=== PATIENT | female | born 1945 | race Two or more races ===

== ENCOUNTER 2018-03-06 14:41 | Emergency (ER) | payer OTHER ==
[~2018-03-06] VITALS: Ht 152.4 cm; Wt 65.8 kg
[~2018-03-06 14:41] MED LIST: ACID REDUCER 1150 MG; AMPICILLIN TRI500 MG; CIPRO500 MG PO; CRESTOR5 MG; DIOVAN320 MG; FENOFIBRATE160 MG; GLUMETZA1000 MG; LEVSIN/SL0.125 MG SL; METOPROLOL SUC100 MG; NORVASC5 MG; OMEPRAZOLE20 MG; PEPCID40 MG PO; TRADJENTA5 MG; ZOFRAN4 MG PO
[2018-03-06] MEDS ORDERED: HUMALOG100 UNIT/1 (15:11)
[2018-03-06] MEDS ORDERED: NORVASC5 MG (15:12)
[2018-03-06] MEDS ORDERED: TOPROL XL100 M1 (15:12)
[2018-03-06] MEDS ORDERED: LANTUS SOL100 UNIT/1 (15:12)
[2018-03-06] MEDS ORDERED: FENOFIBRATE160 MG (15:13)
[2018-03-06] MEDS ORDERED: IRBESARTAN-HCT1 EAC1 (15:13)
[2018-03-06] MEDS ORDERED: CIPRO500 MG PO ×2 (22:13→22:14)
[2018-03-06] MEDS ORDERED: ULTRACET PO ×2 (22:13→22:14)
[2018-03-06] MEDS ORDERED: FLAGYL500MG PO ×2 (22:14)
[2018-03-06] MEDS ORDERED: INTESTINEX680 M1 PO ×2 (22:14)
== END 2018-03-06 22:15 | disposition home or self-care (01) ==
LOC: ER
DX: N39.0 Urinary tract infection, site not specified (principal); B96.89 Other specified bacterial agents as the cause of diseases classified elsewhere

== ENCOUNTER 2018-04-11 11:58 | Emergency (ER) | payer OTHER ==
[~2018-04-11] VITALS: Ht 152.4 cm; Wt 65.8 kg
[~2018-04-11 11:58] MED LIST changes: +FLAGYL500MG PO; +HUMALOG100 UNIT/1; +INTESTINEX680 M1 PO; +IRBESARTAN-HCT1 EAC1; +LANTUS SOL100 UNIT/1; +TOPROL XL100 M1; +ULTRACET PO
[2018-04-11] MEDS ORDERED: FORTAMET1000 MG (12:51)
[2018-04-11] MEDS ORDERED: HUMALOG100 UNIT/1 (12:51)
[2018-04-11] MEDS ORDERED: ZEGERID 40 MG1 EACH (12:52)
[2018-04-11] MEDS ORDERED: IRBESARTAN-HCT1 EACH (12:53)
[2018-04-11] MEDS ORDERED: TRIGLIDE160 MG (12:53)
[2018-04-11] MEDS ORDERED: NORVASC2.5 M1 (12:54)
[2018-04-11] MEDS ORDERED: TOPROL XL100 M1 (12:54)
== END 2018-04-11 19:49 | disposition home or self-care (01) ==
LOC: ER 11:58
DX: N39.0 Urinary tract infection, site not specified (principal)

== ENCOUNTER 2018-04-12 18:25 | Inpatient (IN) | payer OTHER ==
[~2018-04-12] VITALS: Ht 152.4 cm; Wt 65.8 kg
[~2018-04-12 18:25] MED LIST changes: +FORTAMET1000 MG; +IRBESARTAN-HCT1 EACH; +NORVASC2.5 M1; +TRIGLIDE160 MG; +ZEGERID 40 MG1 EACH
--- NOTE | 2018-04-12 18:37 | NUR ---
PTE ALERTA Y ORIENTADA X3 ESFERAS QUIEN LLEGA CON REFERIDO POR VISTULA VAGINAL,PTE REFIERE DOLOR PELVICO Y SECRESIONES EN AREA VAGINAL,PTE EVALUADA FERNANDO EN APCH.
--- NOTE | 2018-04-12 19:36 | NUR ---
PT ALERTA Y ORIENTADA X3 ESFERAS SE LE ORIENTA SOBRE TX Y REFIERE ENTEDER. SE MAMADOU MUESTRAS DE BRANDIN Y VENOPUNCION CON TECNICAS ASEPTICAS. SE ADMINSITRAN MEDICAMENTOS E IVFLUIDS ORDENADOS. PT TOLERA TX.
[2018-04-21] MEDS ORDERED: FLAGYL500MG PO (15:42)
[2018-04-21] MEDS ORDERED: CEFDINIR300 MG PO (15:42)
[2018-04-22] MEDS ORDERED: FLAGYL500MG PO (09:25)
== END 2018-04-21 16:30 | disposition home or self-care (01) | DRG 760 ==
LOC: ER 18:25 → MEDJ 22:31 → SEC-K 22:31 → MEDJ 04-13 01:20
PROVIDERS: ADMIT Internal Medicine
PROC: 0T9B70Z Drainage of Bladder with Drainage Device, Via Natural or Artificial Opening (ICD-10-PCS; 2018-04-12)
PROC: BW21Y0Z Computerized Tomography (CT Scan) of Abdomen and Pelvis using Other Contrast, Unenhanced and Enhanced (ICD-10-PCS; 2018-04-13)
PROC: BU46ZZZ Ultrasonography of Uterus (ICD-10-PCS; 2018-04-13)
PROC: 0DJD8ZZ Inspection of Lower Intestinal Tract, Via Natural or Artificial Opening Endoscopic (ICD-10-PCS; principal; 2018-04-14)
PROC: BU08YZZ Plain Radiography of Uterus and Fallopian Tubes using Other Contrast (ICD-10-PCS; 2018-04-14)
PROC: 0DJD8ZZ Inspection of Lower Intestinal Tract, Via Natural or Artificial Opening Endoscopic (ICD-10-PCS; 2018-04-19)
DX: N82.8 Other female genital tract fistulae (principal); K57.20 Diverticulitis of large intestine with perforation and abscess without bleeding; N39.0 Urinary tract infection, site not specified; R65.10 Systemic inflammatory response syndrome (SIRS) of non-infectious origin without acute organ dysfunction; E44.1 Mild protein-calorie malnutrition; N17.8 Other acute kidney failure; N82.3 Fistula of vagina to large intestine; K63.89 Other specified diseases of intestine; E78.2 Mixed hyperlipidemia; D72.828 Other elevated white blood cell count; E11.9 Type 2 diabetes mellitus without complications; Z79.4 Long term (current) use of insulin; K80.70 Calculus of gallbladder and bile duct without cholecystitis without obstruction; I10 Essential (primary) hypertension; R35.8 Other polyuria

== ENCOUNTER 2018-05-06 10:56 | Emergency (ER) | payer OTHER ==
[~2018-05-06] VITALS: Ht 149.9 cm; Wt 60.8 kg
[~2018-05-06 10:56] MED LIST changes: +CEFDINIR300 MG PO
[2018-05-06] MEDS ORDERED: LANTUS SOL100 UNIT/1 (11:19)
[2018-05-06] MEDS ORDERED: AMOX-CLAV 875-1 EACH (11:19)
== END 2018-05-06 18:12 | disposition home or self-care (01) ==
LOC: ER 10:56
DX: I70.292 Other atherosclerosis of native arteries of extremities, left leg (principal); M79.605 Pain in left leg

== ENCOUNTER 2018-05-24 09:45 | Inpatient (IN) | payer OTHER ==
[~2018-05-24] VITALS: Ht 152.4 cm; Wt 61.2 kg
[~2018-05-24 09:45] MED LIST changes: +AMOX-CLAV 875-1 EACH
[2018-05-24] MEDS ORDERED: AMOX-CLAV 875-1 EACH PO (13:32)
[2018-05-24] MEDS ORDERED: PROBIOT PO (13:33)
[2018-05-24] MEDS ORDERED: ADULT ASPIRIN81 MG PO (13:33)
== END 2018-05-29 16:14 | disposition home or self-care (01) | DRG 330 ==
LOC: EDSTATUS 09:45 → ADM 09:45 → SURH 05-26 06:35 → O/R 05-26 06:35 → SURH 05-26 07:00 → SURG 05-26 18:29 → SURH 05-26 19:27
PROVIDERS: Urology; ADMIT Colon & Rectal Surgery
PROC: 0DJD8ZZ Inspection of Lower Intestinal Tract, Via Natural or Artificial Opening Endoscopic (ICD-10-PCS; 2018-05-26)
PROC: 0DTN4ZZ Resection of Sigmoid Colon, Percutaneous Endoscopic Approach (ICD-10-PCS; principal; 2018-05-26 07:00)
PROC: 0T788DZ Dilation of Bilateral Ureters with Intraluminal Device, Via Natural or Artificial Opening Endoscopic (ICD-10-PCS; 2018-05-26 07:00)
DX: K57.20 Diverticulitis of large intestine with perforation and abscess without bleeding (principal); N82.3 Fistula of vagina to large intestine; N39.0 Urinary tract infection, site not specified; N73.6 Female pelvic peritoneal adhesions (postinfective); N76.0 Acute vaginitis; E11.9 Type 2 diabetes mellitus without complications; I10 Essential (primary) hypertension; E78.49 Other hyperlipidemia; M79.605 Pain in left leg

== ENCOUNTER 2018-06-19 09:20 | Inpatient (IN) | payer OTHER ==
[~2018-06-19] VITALS: Ht 152.4 cm; Wt 62.1 kg
[~2018-06-19 09:20] MED LIST changes: +ADULT ASPIRIN81 MG PO; +AMOX-CLAV 875-1 EACH PO; +PROBIOT PO
--- NOTE | 2018-06-19 09:39 | NUR ---
PACIENTE ALERTA Y ORIENTADA POR JAS ESFERS QUIEN REFIERE DOLOR DE GARGANTA Y FIEBRE.
--- NOTE | 2018-06-19 13:47 | NUR ---
PACIENTE ALERTA Y ORIENTADA EN OLIVER JAS ESFERAS, ES ORIENTADA SOBRE ORDENES MEDICAS, REFIERE ENTENDER. SE COLECTAN MUESTRAS DE LABORATORIO, SE CANALIZA VENA Y SE ADMINISTRA RACHEL ORDENADO. PENDIENTE RADIOGRAFIA.
[2018-06-22] MEDS ORDERED: PROBIOTIC-10 11 EACH PO (14:49)
== END 2018-07-23 17:27 | disposition home or self-care (01) | DRG 689 ==
LOC: ER 09:20 → MEDI 18:28 → MEDJ 18:28
PROVIDERS: ADMIT Colon & Rectal Surgery
PROC: BW24ZZZ Computerized Tomography (CT Scan) of Chest and Abdomen (ICD-10-PCS; 2018-06-23)
PROC: BW21ZZZ Computerized Tomography (CT Scan) of Abdomen and Pelvis (ICD-10-PCS; 2018-06-23)
PROC: 0W9G3ZZ Drainage of Peritoneal Cavity, Percutaneous Approach (ICD-10-PCS; principal; 2018-06-26)
PROC: 3E0F7GC Introduction of Other Therapeutic Substance into Respiratory Tract, Via Natural or Artificial Opening (ICD-10-PCS; 2018-06-26)
PROC: 30233N1 Transfusion of Nonautologous Red Blood Cells into Peripheral Vein, Percutaneous Approach (ICD-10-PCS; 2018-07-03)
PROC: 02HV33Z Insertion of Infusion Device into Superior Vena Cava, Percutaneous Approach (ICD-10-PCS; 2018-07-03)
PROC: 0W9G3ZZ Drainage of Peritoneal Cavity, Percutaneous Approach (ICD-10-PCS; 2018-07-05)
DX: N39.0 Urinary tract infection, site not specified (principal); K65.1 Peritoneal abscess; N17.8 Other acute kidney failure; E87.1 Hypo-osmolality and hyponatremia; K57.20 Diverticulitis of large intestine with perforation and abscess without bleeding; R65.10 Systemic inflammatory response syndrome (SIRS) of non-infectious origin without acute organ dysfunction; D50.0 Iron deficiency anemia secondary to blood loss (chronic); K29.00 Acute gastritis without bleeding; K60.3 Anal fistula; B96.5 Pseudomonas (aeruginosa) (mallei) (pseudomallei) as the cause of diseases classified elsewhere; B96.29 Other Escherichia coli [E. coli] as the cause of diseases classified elsewhere; B95.2 Enterococcus as the cause of diseases classified elsewhere; B95.7 Other staphylococcus as the cause of diseases classified elsewhere; B96.6 Bacteroides fragilis [B. fragilis] as the cause of diseases classified elsewhere; B96.7 Clostridium perfringens [C. perfringens] as the cause of diseases classified elsewhere; E86.0 Dehydration; E11.9 Type 2 diabetes mellitus without complications; I10 Essential (primary) hypertension; E78.49 Other hyperlipidemia; K21.9 Gastro-esophageal reflux disease without esophagitis; D72.828 Other elevated white blood cell count; K57.30 Diverticulosis of large intestine without perforation or abscess without bleeding; K52.89 Other specified noninfective gastroenteritis and colitis; Z79.4 Long term (current) use of insulin

== ENCOUNTER 2018-07-30 15:37 | Emergency (ER) | payer OTHER ==
[~2018-07-30] VITALS: Ht 152.4 cm; Wt 61.2 kg
[~2018-07-30 15:37] MED LIST changes: +PROBIOTIC-10 11 EACH PO
[2018-07-30] MEDS ORDERED: BIOTINEX (16:18)
[2018-07-30] MEDS ORDERED: PEPCID20 MG (16:19)
[2018-07-30] MEDS ORDERED: CARAFATE1 GM (16:19)
== END 2018-07-30 21:13 | disposition home or self-care (01) ==
LOC: ER 15:37
DX: R10.12 Left upper quadrant pain (principal); Z98.890 Other specified postprocedural states

== ENCOUNTER 2018-10-20 07:49 | Outpatient (CLI) | payer OTHER ==
[~2018-10-20 07:49] MED LIST changes: +BIOTINEX; +CARAFATE1 GM; +PEPCID20 MG
== END 2018-10-20 07:53 | disposition home or self-care (01) ==
LOC: TOM 07:49
DX: K57.32 Diverticulitis of large intestine without perforation or abscess without bleeding (principal); K63.2 Fistula of intestine
CPT/HCPCS: 72193; Q9965

== ENCOUNTER 2018-11-22 07:20 | Day surgery (SDC) | payer OTHER | END 2018-11-22 12:50 | disposition home or self-care (01) | LOC: AMB-ENDOS 07:20 | DX: K64.8 Other hemorrhoids (principal) ==

== ENCOUNTER 2020-04-23 07:20 | Day surgery (SDC) | payer OTHER | END 2020-04-23 12:20 | disposition home or self-care (01) | LOC: AMB-ENDOS 07:20 | PROVIDERS: ATTEND Colon & Rectal Surgery | DX: K62.89 Other specified diseases of anus and rectum (principal); K64.8 Other hemorrhoids ==

== ENCOUNTER → 2022-04-12 | Outpatient (CLI) | payer OTHER | END | disposition home or self-care (01) | LOC: SONOGRAMA 11:11 | PROVIDERS: ATTEND Pathology Anatomic Pathology & Clinical Pathology | DX: D34 Benign neoplasm of thyroid gland (principal); E04.9 Nontoxic goiter, unspecified; E04.1 Nontoxic single thyroid nodule ==

== ENCOUNTER 2023-06-04 16:58 | Emergency (ER) | payer OTHER ==
[~2023-06-04] VITALS: Ht 152.4 cm; Wt 67.6 kg
[2023-06-04] MEDS ORDERED: ORPHENADRINE CITRATE 30 MG/ML AMPUL IM ONE (20:45)
[2023-06-04] MEDS ORDERED: NORFLEX100MG PO (22:14)
[2023-06-04] MEDS ORDERED: TYLENOL ARTHRI650 MG PO (22:14)
== END 2023-06-04 22:43 ==
LOC: ER 16:58
DX: M54.16 Radiculopathy, lumbar region (principal); I10 Essential (primary) hypertension; E11.9 Type 2 diabetes mellitus without complications; Z79.4 Long term (current) use of insulin
CPT/HCPCS: 72100; 96372; 99283; J2360